=== PATIENT | female | born 1935 | race Caucasian/White ===

== ENCOUNTER 2020-11-24 13:13 | Emergency (ER) | payer MEDICARE ==
[~2020-11-24] VITALS: Ht 160 cm; Wt 65.5 kg
[2020-11-24 17:44] LABS: BASOPHILS % (AUTO) 0.3 % (0-1); EOSINOPHILS % (AUTO) 0.3 % (0-6); HEMATOCRIT 43.8 % (35.0-45.0); HEMOGLOBIN 14.8 g/dl (12.0-16.0); LYMPHOCYTES # (AUTO) 2.3 X10'3 (1.1-4.8); LYMPHOCYTES % (AUTO) 42.9 % (21-51); MEAN CORPUSCULAR HEMOGLOBIN 29.9 PG (27.0-31.0); MEAN CORPUSCULAR HGB CONC 33.9 g/dL (33.0-36.5); MEAN CORPUSCULAR VOLUME 88.3 FL (78-98); MEAN PLATELET VOLUME 7.9 FL (7.4-10.4); MONOCYTES # (AUTO) 0.8 X10'3 (0-0.9); NEUTROPHILS # (AUTO) 2.3 X10'3 (1.8-7.7); NEUTROPHILS % (AUTO) 42.5 % (42-75); PLATELET COUNT 294 X10'3 (140-440); RED BLOOD COUNT 4.96 X10'6 (4.20-5.60); RED CELL DISTRIBUTION WIDTH 14.1 % (11.5-14.5); WHITE BLOOD COUNT 5.4 X10'3 (4.5-11.0)
[2020-11-24 18:13] LABS: ALANINE AMINOTRANSFERASE 33 U/L (12-78); ALBUMIN 4.1 G/DL (3.4-5.0); ALBUMIN/GLOBULIN RATIO 0.9 (1.1-1.5); ALKALINE PHOSPHATASE 93 IU/L (46-116); ANION GAP 17 (8-16); ASPARTATE AMINO TRANSFERASE 35 U/L (10-37); BILIRUBIN,TOTAL 0.3 MG/DL (0.1-1.0); BLOOD UREA NITROGEN 29 MG/DL (7-18); BUN/CREATININE RATIO 24.4 (6.6-38.0); CHLORIDE 103 MMOL/L (99-107); CREATININE 1.19 MG/DL (0.40-0.90); GLUCOSE 109 MG/DL (70-104); POTASSIUM 3.1 MMOL/L (3.5-5.1); SODIUM 141 MMOL/L (135-145); TOTAL CARBON DIOXIDE 20.9 MMOL/L (24-32); TOTAL PROTEIN 8.5 G/DL (6.4-8.2); eGFR 43 ML/MIN
[2020-11-24] MEDS ORDERED: ondansetron 4mg rapidly disintigrating tab PO ONE (18:20)
[2020-11-24] MEDS ORDERED: normal saline 1000ML IV soln IVB ONE (18:25)
[2020-11-24 18:38] LABS: MAGNESIUM 2.3 MG/DL (1.5-2.4)
[2020-11-24] MEDS ORDERED: potassium Cl 10 mEq/100mL bag IV ONE (18:55)
[2020-11-24] MEDS ORDERED: potassium Cl 20 mEq SR tablet PO PRN (18:55)
[2020-11-24 19:26] LABS: CREATINE KINASE 72 U/L (26-192)
[2020-11-24] MEDS ORDERED: LOPE2CAP PO (20:35)
[2020-11-24] MEDS ORDERED: ONDA4TAB12 PO (20:36)
[2020-11-24 21:07] VITALS: BP 155/79
== END 2020-11-24 21:09 | disposition home or self-care (01) ==
LOC: ER 13:13
DX: R19.7 Diarrhea, unspecified (principal); Z20.822 Contact with and (suspected) exposure to COVID-19; R53.1 Weakness; E86.0 Dehydration; R11.0 Nausea; I10 Essential (primary) hypertension; Z79.899 Other long term (current) drug therapy
CPT/HCPCS: 36415; 80053; 82550; 83735; 85025; 87635; 99285; C9803; J3480; J7030